=== PATIENT | female | born 1990 | race Caucasian/White ===

== ENCOUNTER → 2024-03-15 07:53 | Outpatient (CLI) | payer OTHER, SELFPAY ==
--- NOTE | 2024-03-15 07:56 | DI.ECHO.S_ITS ---
[facility] : : [address] : : [place] : : [id number] : : Phone: [phone] Echocardiogram Report + + :Name: AMADOR THOMSON Study Date: 03/15/2024 Height: 65 in : [facility] Reading[facility]: Weight: 150 lb : : Gender: Female BSA: 1.8 m2 : :: 1990 Age: 33 yrs BP: 109/68 mmHg: :Reason For Study: BRADYCARDIA : :Ordering Physician: ANTOINETTE TITUS Performed By: Ara Guzman : :Referring: ANTOINETTE TITUS : + + Interpretation Summary 1. Normal LV contractility with EF > 60%. No WMA. No LVH. Normal diastolic function. 2. Normal RV contractility. 3. Normal chamber sizes. 4. No significant valvular abnormalities. 5. No obvious intracardiac shunts. 6. No obvious intracardiac masses/thrombi. 7. No hemodynamically significant pericardial effusion. 8. Normal right sided filling pressures. Conclusion: Normal biventricular function without significant valvular abnormalities. Procedure: A two-dimensional transthoracic echocardiogram with color flow and Doppler was performed. The study quality was technically adequate. There is no prior echocardiogram noted for this patient. EKG artificat throughout exam. Heart rate grossly between 56-80bpm. Left Ventricle: The left ventricle is normal in size and wall thickness. The ejection fraction is estimated to be 60-65%. Right Ventricle: The right ventricle is normal in size and function. Atria: The left atrial size is normal. Right atrial size is normal. The interatrial septum is hypermobile. Mitral Valve: The mitral valve leaflets appear to open well. There is no mitral regurgitation noted. Aortic Valve: The aortic valve is trileaflet. The aortic valve opens well. There is no aortic valve stenosis. No aortic regurgitation is present. Tricuspid Valve: The tricuspid valve leaflets are thin and pliable. There is trace tricuspid regurgitation. The right ventricular systolic pressure is estimated to be at least 23 mmHg based on an estimated right atrial pressure of 3 mm Hg. Pulmonic Valve: The pulmonic valve leaflets are thin and pliable; valve motion is normal. There is no pulmonic valvular regurgitation. Great Vessels: The aortic root is normal size. The dimensions of the ascending aorta are normal. The IVC is of normal diameter and collapses greater than 50% with a sniff. This suggests a low right atrial pressure of 3 mm Hg. Pericardium/ Pleura There is no pericardial effusion. There is no pleural effusion. MMode/2D Measurements & Calculations LVIDd: 4.5 cm LVOT diam: 2.1 cm LVIDs: 2.8 cm Ao root diam: 3.1 cm FS: 38.0 % asc Aorta Diam: 3.1 cm EPSS: 0.35 cm Ao Arch Diam (Prox Trans): 2.5 cm IVSd: 1.0 cm LVPWd: 0.75 cm LV mann. diameter/BSA (cm/m^2): 2.6 LV sys. diameter/BSA (cm/m^2): 1.6 LA A2 area: 18.1 cm2 RA long axis: 5.0 cm LA A4 area: 15.4 cm2 RA area: 15.4 cm2 LA length (vol): 4.5 cm RA vol: 40.4 ml LA vol: 52.3 ml RA : 23.1 ml/m2 LA vol index: 29.9 ml/m2 IVC diam: 1.2 cm RVD1 (basal): 4.0 cm TAPSE: 2.3 cm Doppler Measurements & Calculations Ao V2 max: 138.5 cm/sec LVOT Max Gregorio: 102.0 cm/sec Ao V2 mean: 110.0 cm/sec LV V1 max P.2 mmHg Ao max P.7 mmHg LV V1 VTI: 22.9 cm Ao mean P.1 mmHg BIENVENIDO(I,D): 2.4 cm2 Ao V2 VTI: 33.5 cm BIENVENIDO(V,D): 2.6 cm2 sev ratio: 0.68 BIENVENIDO indexed to BSA (cm^2/m^2): 1.4 MV E max gregorio: 73.4 cm/sec TR max gregorio: 223.0 cm/sec MV A max gregorio: 64.3 cm/sec TR max P.9 mmHg MV E/A: 1.1 PA V2 max: 96.7 cm/sec Med Peak E' Gregorio: 14.3 cm/sec PA V2 mean: 65.2 cm/sec E/E' med: 5.1 PA mean P.9 mmHg Lat Peak E' Gregorio: 15.5 cm/sec PA pr(Accel): 17.3 mmHg E/E' lat: 4.7 E/e' average: 4.9 MV dec time: 0.14 sec SV(LVOT): 81.0 ml Reading Physician:
== END ==
PROVIDERS: PCP Family Medicine; Referring Provider Internal Medicine; Visit Provider Internal Medicine
DX: R00.1 Bradycardia, unspecified (principal)
CPT/HCPCS: 93306

== ENCOUNTER → 2024-03-22 15:16 | Outpatient (CLI) | payer OTHER, SELFPAY ==
--- NOTE | 2024-03-22 15:17 | DI.NM.S_ITS ---
PROCEDURE: NM EXERCISE TREADMILL NON NUC COMPARISON: None. INDICATIONS: BRADYCARDIA FINDINGS: Patient exercised per the standard Wade protocol. Test was terminated secondary to fatigue. Total exercise time was 13 minutes and 54 seconds. Maximum heart rate obtained was 187 bpm which is 101% of max impacted heart rate. Maximum blood pressure 198/[place] [address]. CASA -43%. 14.8 METS. No ischemic changes noted. No chest pains voiced. No arrhythmias noted. Normal heart rate and hypertensive response to exercise. IMPRESSION: 1. Negative exercise treadmill stress test for ischemia. 2. Above average exercise tolerance. Dictated by: Nickolas Titus M.D. on 03/22/2024 at 16:45 Approved by: Nickolas Titus M.D. on 03/22/2024 at 16:47
== END ==
LOC: NUCM 15:17
PROVIDERS: PCP Family Medicine; Referring Provider Internal Medicine; Visit Provider Internal Medicine
DX: R00.1 Bradycardia, unspecified (principal)
CPT/HCPCS: 93017

== ENCOUNTER 2024-04-17 10:13 | Emergency (ER) | payer OTHER, SELFPAY ==
[2024-04-17 11:06] VITALS: BP 100/63; PULSE 65; RESP 16; TEMP 36.9; O2SAT 98; BMI 25.0
[2024-04-17 11:54] LABS: Ictotest Urine Negative (Negative)
[2024-04-17 12:02] LABS: Urine Volume 10mL (spun)
[2024-04-17 12:03] LABS: Bacteria Urine Occasional (0-1); Culture Indicated Urine Cult Not Indicated; RBC Urine 1-5/HPF (0-5/HPF); Squamous Epithelial Cell Urine 1-5 /HPF (0-5/HPF); WBC Urine 1-5/HPF (0-5/HPF)
--- NOTE | 2024-04-17 14:08 | ED_ITS ---
HPI - Female Genitourinary <Leonard Lopes PA-C - Last Filed: 04/17/24 14:15> General Chief complaint: Vaginal Bleeding Stated complaint: Might have had a miscarriage Time Seen by Provider: 04/17/24 11:59 History of Present Illness HPI Narrative: 33-year-old female presents to the ED with 2 days of abnormal menstrual period. Patient states that she had an atypical menstrual bleed yesterday with some clots and a gush of bleeding and then cessation of bleeding. Patient also had some nausea, chills and fatigue. Patient suspects that she might have suffered a miscarriage, which is why she came into the ED. patient is on oral progesterone for control. Patient currently has a [id number]. Patient is not currently . No chest pain, shortness of breath. Related Data Allergies Allergy/AdvReac Type Severity Reaction Status Date / Time No Known Drug Allergies Allergy Unverified 08/03/23 16:37 Review of Systems <Leonard Lopes PA-C - Last Filed: 04/17/24 14:15> Constitutional Constitutional: Reports chills, Reports fatigue, Reports fever(s), Denies frequent falls, Denies lethargy and Denies weakness Eyes Eyes: Denies change in vision, Denies eye discharge, Denies irritation and Denies loss of vision ENT Ears, Nose, Mouth, and Throat: Denies change in voice, Denies dizziness, Denies neck pain, Denies sore throat and Denies throat swelling Cardiovascular Cardiovascular: Denies chest pain, Denies irregular heart rhythm, Denies lightheadedness, Denies palpitations, Denies dyspnea, Denies dyspnea on exertion and Denies orthopnea Respiratory Respiratory: Denies cough, Denies dyspnea, Denies dyspnea on exertion and Denies wheezing Gastrointestinal Gastrointestinal: Denies abdominal pain, Denies change in bowel habits, Denies diarrhea, Reports nausea and Denies vomiting Genitourinary Genitourinary: Reports abnormal menses and Denies dysuria Musculoskeletal Musculoskeletal: Denies neck pain and Denies numbness Integumentary/Breasts Skin/Breast: Denies pruritus, Denies erythema, Denies rash and Denies wounds Neurologic Neurologic: Denies behavioral changes, Denies confusion, Denies dizziness, Denies frequent falls, Denies loss of vision, Denies numbness and Denies weakness Psychiatric Psychiatric: Denies anxiety, Denies behavioral changes, Denies confusion, Denies depression, Denies homicidal ideation and Denies suicidal ideation Endocrine Endocrine: Reports fatigue, Denies flushing and Denies palpitations Hematologic/Lymphatic Hematologic/Lymphatic: Denies easy bruising Allergic/Immunologic Allergic/Immunologic: Denies urticaria, Denies throat swelling and Denies wheezing Exam <Leonard Lopes PA-C - Last Filed: 04/17/24 14:15> Narrative Exam Narrative: Const General:?cooperative, healthy appearing and comfortable [facility] Head:?normal to inspection Ears:?hearing grossly normal bilaterally Nose:?external nose normal Face and sinus:?normal facial exam and sinuses nontender Mouth:?oral mucosae normal Throat:?posterior oropharynx normal Eyes General:?appearance normal, both eyes and all related structures Neck Neck:?normal visual inspection and no lymphadenopathy noted Resp Effort & Inspection:?normal respiratory effort Auscultation:?clear to auscultation bilaterally Cardio Rate:?regular rate Rhythm:?regular rhythm Neuro General:?patient alert, patient awake and patient oriented x3 Initial Vital Signs Initial Vital Signs: Vital Signs Temperature 98.5 F 04/17/24 11:06 Pulse Rate 65 04/17/24 11:06 Respiratory Rate 16 04/17/24 11:06 Blood Pressure 100/63 04/17/24 11:06 Pulse Oximetry 98 04/17/24 11:06 Oxygen Delivery Method Room Air 04/17/24 11:06 <Cristopher Marie MD - Last Filed: 04/17/24 22:40> Initial Vital Signs Initial Vital Signs: Vital Signs Temperature 98.5 F 04/17/24 11:06 Pulse Rate 65 04/17/24 11:06 Respiratory Rate 16 04/17/24 11:06 Blood Pressure 100/63 04/17/24 11:06 Pulse Oximetry 98 04/17/24 11:06 Oxygen Delivery Method Room Air 04/17/24 11:06 Course <Leonard Lopes PA-C - Last Filed: 04/17/24 14:15> Orders Ordered: ED Orders 04/17/24 11:15 Ictotest Urine Stat Urine Microscopic Stat Vital Signs Vital signs: Vital Signs - 8 hr 04/17/24 11:06 Temperature 98.5 F Pulse Rate 65 Respiratory Rate 16 Blood Pressure 100/63 Pulse Oximetry 98 Oxygen Delivery Method Room Air <Cristopher Marie MD - Last Filed: 04/17/24 22:40> Orders Ordered: ED Orders 04/17/24 11:15 Ictotest Urine Stat Urine Microscopic Stat Vital Signs Vital signs: Vital Signs - 8 hr 04/17/24 11:06 Temperature 98.5 F Pulse Rate 65 Respiratory Rate 16 Blood Pressure 100/63 Pulse Oximetry 98 Oxygen Delivery Method Room Air MDM - Female Genitourinary <Leonard Lopes PA-C - Last Filed: 04/17/24 14:15> Lab Data Labs: Lab Results 04/17/24 Range/Units 11:15 Ur Bilirubin Confirm Negative (Negative) Urine RBC 1-5/hpf (0-5/HPF) Urine WBC 1-5/hpf (0-5/HPF) Ur Squamous Epith Cells 1-5 /hpf (0-5/HPF) Urine Bacteria Occasional (0-1) (None) Ur Culture Indicated? Cult not indicated Vol Urine Centrifuged 10ml (spun) Point of Care Testing Test Results Negative Urine Dip Bedside Urine Glucose Negative Bedside Urine Bilirubin ++ 2 Bedside Urine Ketone +/- 5 Urine Specific [place] 1.010 Bedside Urine Occult Blood ++ Bedside Urine pH 7.0 Bedside Urine Protein + 30 Bedside Urine Urobilinogen - Negative Bedside Urine Nitrite - Negative Bedside Urine Leukocytes +/- 15 Esterase MDM Narrative Medical decision making narrative: 33-year-old female presents to the ED with 2 days of abnormal menstrual period. Urine is negative. POC urine shows some leuks, however UA negative for WBCs. Patient is not symptomatic. Discussed findings with patient. Reassured her that she might just have had an atypical menstrual period. Other symptoms could likely be from a viral URI such as the flu. Recommend follow-up with OBGYN for further evaluation. ED return precautions discussed with patient. Patient verbalized understanding. Medical records reviewed: Yes <Cristopher Marie MD - Last Filed: 04/17/24 22:40> Lab Data Labs: Lab Results 04/17/24 Range/Units 11:15 Ur Bilirubin Confirm Negative (Negative) Urine RBC 1-5/hpf (0-5/HPF) Urine WBC 1-5/hpf (0-5/HPF) Ur Squamous Epith Cells 1-5 /hpf (0-5/HPF) Urine Bacteria Occasional (0-1) (None) Ur Culture Indicated? Cult not indicated Vol Urine Centrifuged 10ml (spun) Point of Care Testing Test Results Negative Urine Dip Bedside Urine Glucose Negative Bedside Urine Bilirubin ++ 2 Bedside Urine Ketone +/- 5 Urine Specific [place] 1.010 Bedside Urine Occult Blood ++ Bedside Urine pH 7.0 Bedside Urine Protein + 30 Bedside Urine Urobilinogen - Negative Bedside Urine Nitrite - Negative Bedside Urine Leukocytes +/- 15 Esterase Discharge Plan Departure Patient Disposition: Home Clinical Impression: Abnormal vaginal bleeding Instructions: DI for Vaginal Bleeding Activity Restrictions/Additional Instructions: You were evaluated in the ED today for an abnormal menstrual period. It is reassuring that your bleeding has stopped and you are feeling better. Your urine was negative for . Please continue to stay well hydrated and rest more. Please follow-up with your OBGYN as soon as possible for further evaluation and treatment. Return to the ED if you have worsening symptoms. Referrals: Tegan Carson MD [Primary Care Provider] - Stand Alone Forms: Patient Portal/API/Survey ED Sign-out <Cristopher Marie MD - Last Filed: 04/17/24 22:40> Cosign ED Attending Cosignature Attestation: I was immediately available in the department for consultation. This documentation has been reviewed and I agree with assessment and plan. Supervised by Cristopher Marie MD
[2024-04-17 14:16] VITALS: BP 97/59; PULSE 68; RESP 18; O2SAT 97
== END 2024-04-17 14:16 | disposition home or self-care (01) ==
PROVIDERS: Emergency Provider Student in an Organized Health Care Education/Training Program; PCP Family Medicine
DX: N93.9 Abnormal uterine and vaginal bleeding, unspecified (principal); R11.0 Nausea; R53.83 Other fatigue; R68.83 Chills (without fever)
CPT/HCPCS: 81003; 81015; 81025; 99282